=== PATIENT | male | born 1970 | race Caucasian/White ===

== ENCOUNTER 2021-07-04 14:19 | Outpatient (RCR) | payer MEDICARE, MEDICAID, SELFPAY | END 2021-07-07 09:06 | disposition home or self-care (01) | LOC: HO.WCC 14:19 | PROVIDERS: Absent Provider Podiatrist Foot & Ankle Surgery; PCP Internal Medicine; Visit Provider Physician Assistant | DX: E11.65 Type 2 diabetes mellitus with hyperglycemia (principal); L84 Corns and callosities; E11.51 Type 2 diabetes mellitus with diabetic peripheral angiopathy without gangrene; Z89.422 Acquired absence of other left toe(s) | CPT/HCPCS: 99212 ==

== ENCOUNTER 2021-08-11 13:47 | Outpatient (RCR) | payer MEDICARE, MEDICAID, SELFPAY | END 2021-08-26 16:02 | disposition home or self-care (01) | LOC: HO.WCC 13:47 | PROVIDERS: PCP Internal Medicine; Visit Provider Surgery | DX: E11.621 Type 2 diabetes mellitus with foot ulcer (principal); L97.522 Non-pressure chronic ulcer of other part of left foot with fat layer exposed; L84 Corns and callosities; I10 Essential (primary) hypertension; F17.210 Nicotine dependence, cigarettes, uncomplicated; Z89.422 Acquired absence of other left toe(s) | CPT/HCPCS: 11042; 99212 ==

== ENCOUNTER 2021-10-14 08:18 | Outpatient (RCR) | payer MEDICARE, MEDICAID, SELFPAY | END 2021-12-19 14:03 | disposition home or self-care (01) | LOC: HO.WCC 08:18 | PROVIDERS: PCP Internal Medicine; Visit Provider Physician Assistant | DX: E11.621 Type 2 diabetes mellitus with foot ulcer (principal); L97.522 Non-pressure chronic ulcer of other part of left foot with fat layer exposed; T87.89 Other complications of amputation stump; E11.69 Type 2 diabetes mellitus with other specified complication; M86.472 Chronic osteomyelitis with draining sinus, left ankle and foot; I10 Essential (primary) hypertension; F17.210 Nicotine dependence, cigarettes, uncomplicated; Z89.422 Acquired absence of other left toe(s) | CPT/HCPCS: 11042; 87071; 87077; 87186; 87205; 99212; 99213 ==

== ENCOUNTER 2021-11-18 08:52 | Outpatient (REF) | payer MEDICARE, MEDICAID, SELFPAY ==
--- NOTE | ~2021-11-18 | MR_ITS ---
EXAMINATION: MRI FOOT WITHOUT AND WITH CONTRAST, LEFT CLINICAL INFORMATION: Nonhealing wound. Evaluate for osteomyelitis COMPARISON: None TECHNIQUE: MRI without and with intravenous administration of 10 mL of Gadavist is performed on the left foot. 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 There is intermediate signal soft tissue and edema overlying the stump. Probable shallow ulceration plantar to the medial cuneiform. No abscess. In this region, there is subtle cortical irregularity with underlying marrow edema and enhancement medial to the flexor hallucis longus tendon which could represent very early or mild osteomyelitis. MR/MR foot LT wo/w con IMPRESSION: Postsurgical changes as described. Probable shallow ulceration and cellulitis plantar to the distal medial cuneiform. Deep to these soft tissue changes and medial to the flexor hallucis longus tendon is a subtle focus of cortical irregularity and marrow signal abnormality which could represent very early/mild osteomyelitis. No evidence to suggest osteomyelitis elsewhere.
== END 2021-11-18 08:53 | disposition home or self-care (01) ==
LOC: HO.MRI 08:52
PROVIDERS: Visit Provider Physician Assistant
DX: E11.621 Type 2 diabetes mellitus with foot ulcer (principal); L97.529 Non-pressure chronic ulcer of other part of left foot with unspecified severity; Z89.422 Acquired absence of other left toe(s)
CPT/HCPCS: 73720; A9585

== ENCOUNTER → 2021-12-14 14:15 | Outpatient (BNVA) | payer MEDICARE, MEDICAID, SELFPAY | PROVIDERS: Visit Provider Internal Medicine | DX: L08.9 Local infection of the skin and subcutaneous tissue, unspecified (principal) | CPT/HCPCS: 99202 ==